=== PATIENT | female | born 1980 | race Caucasian/White ===

== ENCOUNTER 2023-07-12 08:49 | Emergency (ER) | payer BC, SELFPAY ==
[2023-07-12 08:51] VITALS: BP 132/93
--- NOTE | 2023-07-12 08:56 | ED.GENMED ---
History of Present Illness
General
Chief Complaint: Cold/Flu/URI Symptoms
Time Seen by Provider: 07/12/23 08:56
Travel History
Have you had any contact with someone who has COVID-19?: No
Do you have any symptoms of coronavirus? Fever > 100 degrees, chills, cough, shortness of breath, sore throat, loss of taste or smell, muscle aches, or headache?: No
History of Present Illness
History of Present Illness:
HPI: Patient tested positive for COVID-19 about 5 days ago. She has associated congestion and has maybe some trouble breathing. One of the main symptoms is concerns with anosmia and inability to taste. She does appear very anxious. She states
she is normally very healthy. She has not been vaccinated against COVID-19 this year.
EXAM:
GENERAL: Well appearing but appears very anxious
HEENT: Moist oral mucosa
CARDIOVASCULAR: No murmurs, borderline tachycardic heart rate with regular rhythm, No chest wall tenderness
PULMONARY: No respiratory distress, breath sounds are clear and equal
ABDOMEN: Soft with no peritoneal signs, no tenderness
NEUROLOGIC: Excellent strength all extremities, no coordination deficits
PSYCHIATRIC: Appropriate mental status, normal insight and judgement, appears anxious
EXTREMITIES: Nontender, no edema, moves all extremities equally
SKIN: No rash, no lesions
ED COURSE:
9:10 AM: I initially evaluated patient
NUMBER AND COMPLEXITY OF PROBLEMS ADDRESSED AT THE ENCOUNTER
� Chronic conditions affecting care: Denies any past medical history
� Acute Exacerbation and/or Progression of Chronic Illness: This is an acute problem
� Differential Diagnosis includes: Anosmia from COVID-19, anxiety
AMOUNT AND/OR COMPLEXITY OF DATA TO BE REVIEWED AND ANALYZED
� I performed an independent evaluation of and my interpretation is:
EKG:
CT:
X-rays:
Laboratory Studies:
Other:
� Review of other/old records: No old records available for review
� Clinical information was obtained by an independent historian:
� Prescriptions/Medications Considered but not given: Considered Paxlovid however the patient is young and healthy and symptoms have been going on for about a week
� Further testing considered but not performed:
RISK OF COMPLICATIONS AND/OR MORBIDITY OR MORTALITY OF PATIENT MANAGEMENT
� Social determinants of health affecting care: Lives alone at home and is estranged from her family and she says she has lack of social support
� Discussion with other providers:
� Escalation of care including admission/observation vs risk of discharge considered: The patient is young and healthy but is extremely concerned about the anosmia. She appears extremely anxious. She has been having trouble
sleeping recently. Reassurance was given. No clear indication for any imaging as she has room air sats of 100% and her breath sounds are perfectly clear.
Phy Exam
Physical Exam
Physical Exam:
See HPI
Course
Vital Signs
Initial and Last Documented VS:
Initial Vital Signs
Temp Pulse Resp BP Pulse Ox
99.4 F 104 16 132/93 100
07/12/23 08:51 07/12/23 08:51 07/12/23 08:51 07/12/23 08:51 07/12/23 08:51
Last Documented Vital Signs
Temp Pulse Resp BP Pulse Ox
99.4 F 104 16 132/93 100
07/12/23 08:51 07/12/23 08:51 07/12/23 08:51 07/12/23 08:51 07/12/23 08:51
*Critical Care Note
Total Time (30-74mins, 75-104mins- exclusive of procedures): Not Applicable
ED Attending Note
-
Portions of this chart may have been created with voice recognition software.� Occasional wrong word or��sound alike� substitutions may have occurred due to the inherent limitations of voice recognition software.
Discharge Plan
Departure
Patient Disposition: Home (Routine Discharge)
Date of Disposition: 07/12/23
Time of Disposition: 09:15
Patient with high blood pressure during this ER visit?: Yes
Discharge Problem:
Anosmia, COVID-19
Activity Restrictions/Additional Instructions:
The lack of smell and taste is extremely common with COVID-19. There is no other medication that be given to help speed the recovery. However, in general symptoms can take several weeks to possibly months to resolve. Your vital signs show that
you have an excellent oxygen level and your breath sounds are clear. I do not feel that you are in any threat from the COVID-19 for anything serious. Return here if worse.
Interventions
Interventions:
*Risk Screen - Suicide Last Done: 07/12/23 08:51
*General Assessment Last Done: 07/12/23 08:51
*Neglect/Abuse Screening Last Done: 07/12/23 08:51
ED- Pulmonary Assessment Last Done: 07/12/23 09:02
== END 2023-07-12 09:39 | disposition home or self-care (01) ==
LOC: EMR 08:49
PROVIDERS: EMERGENCY PHYSICIAN Emergency Medicine; FAMILY PHYSICIAN Family Medicine
DX: R43.0 Anosmia (principal); U07.1 COVID-19
CPT/HCPCS: 99282

== ENCOUNTER 2023-07-16 07:27 | Emergency (ER) | payer BC, SELFPAY ==
[2023-07-16 07:32] VITALS: BP 134/96
[2023-07-16 07:58] VITALS: BMI 18.7
--- NOTE | 2023-07-16 08:18 | ED.GENMED ---
History of Present Illness
<EVELIO Blancas - Last Filed: 07/18/23 01:15>
General
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
Source: patient
Exam Limitations: none
Time Seen by Provider: 07/16/23 07:57
Nursing documentation reviewed up to this point in time: agreed with
Travel History
Have you had any contact with someone who has COVID-19?: No
Do you have any symptoms of coronavirus? Fever > 100 degrees, chills, cough, shortness of breath, sore throat, loss of taste or smell, muscle aches, or headache?: No
History of Present Illness
History of Present Illness:
Patient is a 43-year-old female who presents to the ER for evaluation. Patient presents very anxious reports she recently had COVID 2 weeks ago. She reports in fact she was seen here several days ago because she lost her taste and smell. She
tells me she is very anxious over COVID.
She reports she was seen by her family doctor 10 days ago for a physical and they found incidental blood in her urine. She reports her period started 2 weeks ago and normally last for 4 days however she has noted blood in her urine and does not
believe this is her menses. She denies any nausea vomiting abdominal pain back pain fever chills.
Review of Systems
<EVELIO Blancas - Last Filed: 07/18/23 01:15>
Review of Systems
Allergies reviewed?: Yes
All Other Systems: ROS reviewed and negative except as documented in HPI and ROS
Constitutional: Reports no symptoms; Denies fever, fatigue or chills
EENT: Reports other (loss of taste /smell since covid 2 wks ago )
Respiratory: Reports no symptoms
Cardiac: Reports no symptoms
ABD/GI: Reports no symptoms
: Reports no symptoms
Musculoskeletal: Reports no symptoms
Skin: Reports no symptoms
Neurological: Reports no symptoms
Psychiatric: Reports anxiety
Phy Exam
<EVELIO Blancas - Last Filed: 07/18/23 01:15>
General Physical Exam
General Presentation: no apparent distress
General age: appears stated age
General Skin: warm and dry
General Habitus: normal
General Mental: alert
General Hydration: appears well hydrated
Cardiovascular Exam
Cardiovascular Exam: regular rate/rhythm, no murmur and normal peripheral pulses
Pulmonary Exam
Pulmonary Exam: lungs clear and no respiratory distress
Neurological Exam
Neurological Exam: alert and oriented x3
Musculoskeletal Exam
Musculoskeletal Exam: full ROM
Skin Exam
Skin Exam: normal color and warm/dry
Psychiatric Exam
Psychiatric Exam: anxious
Course
<EVELIO Blancas - Last Filed: 07/18/23 01:15>
Orders/Labs/Results
Orders:
Orders
07/16/23 08:17
Test Result ONCE
07/16/23 08:23
HCG, Urine Qualitative Screen Urgent
Date Specimen was Collected: 07/16/23
Time Specimen was Collected: 08:19
UA Reflex to Culture [Urinalysis Reflex To Culture] Urgent
Date Specimen was Collected: 07/16/23
Time Specimen was Collected: 08:19
Urine Microscopic Reflex Cult Urgent
Urine Culture Urgent
[facility] Source: U
Specimen Description:
Date Specimen was Collected: 07/16/23
Time Specimen was Collected: 08:19
07/16/23 10:20
IV Insert/Care/Rem.- Treatment PRN
07/16/23 10:22
Complete Blood Count/With Diff Urgent
Comprehensive Metabolic Panel Urgent
PTT Urgent
Prothrombin Time Urgent
07/16/23 11:20
Vital Signs- Treatment ONCE
Frequency: Once
Abnormal Lab Results
07/16/23 07/16/23
08:23 10:22
Absolute Monos (auto) 1.0 H 10^3/uL
(0.1-0.6)
Lymphocytes % 16.9 L %
(20.5-51.1)
Monocytes % 12.3 H %
(1.7-9.3)
Creatinine 0.4 L mg/dL
(0.6-1.0)
Glucose 109 H mg/dl
(70-99)
AST 40 H U/L
(14-36)
ALT 98 H U/L
(0-35)
Ur Occult Blood Reflex 1+ A
(Negative)
Leukocyte Esterase Rfl 1+ A
(Negative)
Urine Bacteria (Reflex) Few A
(Negative)
07/16/23 10:22
07/16/23 10:22
Vital Signs
Initial and Last Documented VS:
Initial Vital Signs
Temp Pulse Resp BP Pulse Ox
98.3 F 115 18 134/96 98
07/16/23 07:32 07/16/23 07:32 07/16/23 07:32 07/16/23 07:32 07/16/23 07:32
Last Documented Vital Signs
Temp Pulse Resp BP Pulse Ox
98.3 F 78 18 112/72 97
07/16/23 07:32 07/16/23 11:31 07/16/23 11:31 07/16/23 11:31 07/16/23 11:31
Deli Clerk consulted with Physician
Deli Clerk consulted with physician?: Yes
Name of Physician Consulted: kevin
<Pily Joshua MD - Last Filed: 07/16/23 11:24>
Orders/Labs/Results
Orders:
Orders
07/16/23 08:17
Test Result ONCE
07/16/23 08:23
HCG, Urine Qualitative Screen Urgent
Date Specimen was Collected: 07/16/23
Time Specimen was Collected: 08:19
UA Reflex to Culture [Urinalysis Reflex To Culture] Urgent
Date Specimen was Collected: 07/16/23
Time Specimen was Collected: 08:19
Urine Microscopic Reflex Cult Urgent
Urine Culture Urgent
[facility] Source: U
Specimen Description:
Date Specimen was Collected: 07/16/23
Time Specimen was Collected: 08:19
07/16/23 10:20
IV Insert/Care/Rem.- Treatment PRN
07/16/23 10:22
Complete Blood Count/With Diff Urgent
Comprehensive Metabolic Panel Urgent
PTT Urgent
Prothrombin Time Urgent
07/16/23 11:20
Vital Signs- Treatment ONCE
Frequency: Once
Abnormal Lab Results
07/16/23 07/16/23
08:23 10:22
Absolute Monos (auto) 1.0 H 10^3/uL
(0.1-0.6)
Lymphocytes % 16.9 L %
(20.5-51.1)
Monocytes % 12.3 H %
(1.7-9.3)
Creatinine 0.4 L mg/dL
(0.6-1.0)
Glucose 109 H mg/dl
(70-99)
AST 40 H U/L
(14-36)
ALT 98 H U/L
(0-35)
Ur Occult Blood Reflex 1+ A
(Negative)
Leukocyte Esterase Rfl 1+ A
(Negative)
Urine Bacteria (Reflex) Few A
(Negative)
07/16/23 10:22
07/16/23 10:22
Vital Signs
Initial and Last Documented VS:
Initial Vital Signs
Temp Pulse Resp BP Pulse Ox
98.3 F 115 18 134/96 98
02/07/24 07:32 07/16/23 07:32 07/16/23 07:32 07/16/23 07:32 07/16/23 07:32
Last Documented Vital Signs
Temp Pulse Resp BP Pulse Ox
98.3 F 78 18 112/72 97
07/16/23 07:32 07/16/23 11:31 07/16/23 11:31 07/16/23 11:31 07/16/23 11:31
<EVELIO Blancas - Last Filed: 07/18/23 01:15>
MDM/Problems Addressed
MDM/Problems Addressed:
Patient is a 43-year-old female who presents to the ER for evaluation. Patient presents to the ER very anxious. Patient very fixated on how she had COVID 2 weeks ago and how this' has ruined my life.' She is very concerned that she has lost taste
and smell. In fact she was seen here in the ER for this July 12. She is concerned that she had some blood in her urine incidentally at her family practice office. She is convinced this is not vaginal. She on exam is quite anxious tells me she
has not been able to sleep because of COVID. On exam however despite being anxious she is in no acute distress. She has no nitrates and only 0�2 RBCs in urine. Patient evaluated by ED physician as very anxious multiple complaints including very
concentrated on COVID and the fact that she is not able to sleep because of this.
Patient had labs checked and no acute findings.
Patient was given several tablets of sleeping medicine however I discussed with patient that she must closely follow-up with family doctor for further reevaluation of symptoms including her anxiety.
<EVELIO Blancas - Last Filed: 07/18/23 01:15>
*Pulse Oximetry
Patient hypoxic: no
*Critical Care Note
Total Time (30-74mins, 75-104mins- exclusive of procedures): Not Applicable
ED Attending Note
<EVELIO Blancas - Last Filed: 07/18/23 01:15>
-
Portions of this chart may have been created with voice recognition software.� Occasional wrong word or��sound alike� substitutions may have occurred due to the inherent limitations of voice recognition software.
<Pily Joshua MD - Last Filed: 07/16/23 11:24>
ED Attending Note
Patient seen and examined by attending physician: Yes
I performed the substantive portion of visit, reviewed & personally made and approve the management plan that is documented in note by myself or MINOR.: Yes
ED Attending Note:
43-year-old female with a constellation of symptoms ever since she got COVID approximately 12 days ago. Describes her self is perfectly well before that time. Of note, and routine PCP visit she was noted to have microscopic hematuria on July 02
and does need to pursue outpatient follow-up regarding. She describes insomnia, anorexia, weight loss, intermittent nonproductive cough, fatigue, loss of taste and smell, and concern regarding dysuria/urgency. She denies flank pain, abdominal
pain, vomiting. On exam, heart regular rate and rhythm, lungs CTA, abdomen soft and nontender. Neurologically intact. Workup generally unremarkable here, microscopic hematuria noted and she should pursue continued outpatient follow-up regarding,
no findings to suggest cystitis/UTI/pyelonephritis.
Discharge Plan
Departure
Patient Disposition: Home (Routine Discharge)
Date of Disposition: 07/16/23
Time of Disposition: 11:57
Patient with high blood pressure during this ER visit?: Yes
Condition: Fair
Covid-19: Not Applicable
Discharge Problem:
Hematuria
Instructions: Blood in the urine (hematuria) in adults
Prescriptions:
New
zolpidem [Ambien] 5 mg tablet
5 mg PO HS PRN (Reason: insomnia) Qty: 5 0RF
Referrals:
Fede Louis MD [Family Provider] -
Activity Restrictions/Additional Instructions:
As discussed please follow-up with your family doctor for further evaluation of symptoms including blood in urine, difficulty sleeping and other symptoms including inability to sleep. You were given a prescription for Ambien to take for sleep.
This medication was sent to your pharmacy
As discussed your liver function tests are very minimally elevated. please have this evaluated by your family doctor. Return if any worsening of symptoms
Interventions
Interventions:
*Risk Screen - Suicide Last Done: 07/16/23 07:32
*General Assessment Last Done: 07/16/23 07:32
*Neglect/Abuse Screening Last Done: 07/16/23 07:32
ED- Fall Risk Assessment Last Done: 07/16/23 07:58
*ED COVID-19 Vaccine History Last Done: 07/16/23 07:32
*Nursing Disposition Last Done: 07/16/23 12:08
ED-Female Genitourinary Assessment Last Done: 07/16/23 07:58
Discharge Date and Time
Discharge Date/Time: 07/16/23 12:09
[2023-07-16 08:39] LABS: Urine Albumin Negative (Neg - Trace); Urine Bilirubin Negative (Negative); Urine Character Clear (Clear); Urine Color Yellow; Urine Glucose Negative (Negative); Urine Ketone Negative (Negative); Urine Leukocyte 1+ (Negative); Urine Nitrite Negative (Negative); Urine Occult Blood 1+ (Negative); Urine Urobilinogen Negative (Neg - 1+)
[2023-07-16 08:43] LABS: HCG, Urine Qualitative Screen Negative
[2023-07-16 08:55] LABS: Urine Bacteria Few (Negative); Urine Mucus Few; Urine Squamous Cell 0-2 /LPF (Few)
[2023-07-16 08:56] LABS: Urine Red Blood Cell 0-2 /HPF (0-2)
[2023-07-16 10:34] LABS: % Basophils 0.5 % (0-2); % Immature Granulocytes 0.5 % (0-0.5); % Lymphocytes 16.9 % (20.5-51.1); % Monocytes 12.3 % (1.7-9.3); % Neutrophils 68.8 % (42.2-75.2); Absolute Eosinophils 0.1 10^3/uL (0-0.7); Absolute Lymphocytes 1.4 10^3/uL (1.2-3.4); Absolute Neutrophils 5.5 10^3/uL (1.4-6.5); Hematocrit 37.2 % (37.0-47.0); Hemoglobin 13.3 g/dL (12.0-16.0); Mean Corp Hgb Conc. 35.8 g/dL (33.0-37.0); Mean Corpuscular Hgb 29.4 pg (27.0-31.0); Mean Corpuscular Volume 82.1 fL (81.0-99.0); Nucleated Red Blood Cells % 0 %; Red Blood Cell Count 4.53 10^6/uL (4.20-5.40); Red Cell Dist. Width 11.6 % (11.5-14.5)
[2023-07-16 10:43] LABS: INR 1.06; PT 13.8 Sec (11.4-14.6)
[2023-07-16 10:44] LABS: APTT 24.7 Sec (23.4-35.0)
[2023-07-16 10:55] LABS: ALT (SGPT) 98 U/L (0-35); AST (SGOT) 40 U/L (14-36); Albumin 4.1 g/dl (3.5-5.0); Alkaline Phosphatase 56 U/L (38-126); Blood Urea Nitrogen 7 mg/dl (7-17); Calcium 9.2 mg/dl (8.4-10.2); Carbon Dioxide 26 mmol/L (22-30); Chloride 105 mmol/L (98-107); Estimated Creatinine Clearance 96 ml/min; Glucose 109 mg/dl (70-99); Potassium 4.1 mmol/L (3.5-5.1); Sodium 138 mmol/L (135-145); Total Bilirubin 0.5 mg/dl (0.2-1.3); Total Protein 7.1 g/dl (6.3-8.2); eGFR > 60.00
[2023-07-16 11:31] VITALS: BP 112/72
== END 2023-07-16 12:09 | disposition home or self-care (01) ==
LOC: EMR 07:27
PROVIDERS: Nurse Practitioner; EMERGENCY PHYSICIAN Emergency Medicine; FAMILY PHYSICIAN Family Medicine
DX: R31.9 Hematuria, unspecified (principal); R03.0 Elevated blood-pressure reading, without diagnosis of hypertension
CPT/HCPCS: 99283; 80053; 81003; 81015; 81025; 85025; 85610; 85730; 87086

== ENCOUNTER 2023-09-18 15:08 | Emergency (ER) | payer BC, SELFPAY ==
[2023-09-18 15:32] VITALS: BMI 14.9
--- NOTE | 2023-09-18 15:37 | ED.GENMED ---
History of Present Illness
General
Chief Complaint: Crisis Evaluation
Source: patient
Exam Limitations: none
Time Seen by Provider: 09/18/23 15:28
History of Present Illness
History of Present Illness:
See MDM
Past History
Past History
ED Past Medical History: Psychiatric
ED Past Surgical History: None
Social History
Tobacco: Non-smoker
Alcohol: None
Phy Exam
Physical Exam
Physical Exam:
See MDM
Course
Orders/Labs/Results
Orders:
Orders
09/18/23 15:36
Test Result ONCE
09/18/23 15:49
Alcohol Urgent
Complete Blood Count/With Diff Urgent
Comprehensive Metabolic Panel Urgent
HCG, Urine Qualitative Screen Urgent
Date Specimen was Collected: 09/18/23
Time Specimen was Collected: 15:42
Urinalysis Reflex To Culture Urgent
Date Specimen was Collected: 09/18/23
Time Specimen was Collected: 15:42
Urine Drug Abuse Screen Urgent
Date Specimen was Collected: 09/18/23
Time Specimen was Collected: 15:42
Urine Microscopic Reflex Cult Urgent
Urine Culture Urgent
[facility] Source: U
Specimen Description:
Date Specimen was Collected: 09/18/23
Time Specimen was Collected: 15:42
Abnormal Lab Results
09/18/23
15:49
Absolute Neuts (auto) 7.4 H 10^3/uL
(1.4-6.5)
Absolute Lymphs (auto) 1.0 L 10^3/uL
(1.2-3.4)
Absolute Monos (auto) 1.0 H 10^3/uL
(0.1-0.6)
Neutrophils % 77.5 H %
(42.2-75.2)
Lymphocytes % 10.8 L %
(20.5-51.1)
Monocytes % 10.2 H %
(1.7-9.3)
Sodium 134 L mmol/L
(135-145)
Carbon Dioxide 19 L mmol/L
(22-30)
BUN 6 L mg/dl
(7-17)
Creatinine 0.4 L mg/dL
(0.6-1.0)
Glucose 120 H mg/dl
(70-99)
Urine Ketones 3+ A
(Negative)
Ur Occult Blood Reflex Trace A
(Negative)
Leukocyte Esterase Rfl 2+ A
(Negative)
Urine WBC (Reflex) 60-70 A /HPF
(0-5)
Urine Bacteria (Reflex) Moderate A
(Negative)
09/18/23 15:49
09/18/23 15:49
Vital Signs
Initial and Last Documented VS:
Initial Vital Signs
Pulse Resp BP Pulse Ox
99 18 137/82 98
09/18/23 15:48 09/18/23 15:48 09/18/23 15:48 09/18/23 15:48
Last Documented Vital Signs
Pulse Resp BP Pulse Ox
99 18 137/82 98
09/18/23 15:48 09/18/23 15:48 09/18/23 15:48 09/18/23 15:48
MDM/Problems Addressed
Differential Diagnosis Includes:
HPI and MDM Narrative:
43-year-old female presenting for psychiatric evaluation. A backup 302 was filed by a Automobile Insurance Claim Examiner, per crisis. Per crisis, patient was found walking around the park with a handgun. Patient states she has a license to carry and she upholstered her
gun because it was bothering her side. Patient states that she was talking to a stranger prior to the interaction with the Automobile Insurance Claim Examiner. Based on their interaction with the bystander saw out the Automobile Insurance Claim Examiner. Patient is currently denying suicidal
or homicidal thoughts. She states she has a recent diagnosis of major depression disorder but has not started antidepressants.
Physical exam
General: Well appearing and non-toxic
HEENT: protecting airway
Neck: appears supple
CV: No evidence of cyanosis
Resp: No accessory muscle use
Abd: Non-distended
Extremities: No deformities
Neuro: alert
Psych: Flat affect
Skin: Intact
Problems Addressed including Acute and Chronic Conditions affecting care:
1. Depression
Acuity: acute
Prognosis: unstable
Details: Patient currently on a backup 302 but states she is willing to go on a 201. Crisis following
Updates
Patient accepted to a psychiatric facility
Urinalysis appears contaminated.
Differential Diagnosis (but not limited to): Depression, suicidal thoughts
Testing considered: CT head but patient appears to be acting appropriately
Drug therapy (if applicable): OTC meds, please see d/c instruction regarding Rx drugs
Amount and/or Complexity of Data Reviewed
Clinical info obtained from: Patient
External data reviewed: N/A
Labs I independently reviewed (but not limited to): White blood cell count
Radiology: N/A
Pulse Ox: not hypoxic
EKG independently reviewed: N/A
Events Specialist: N/A
Critical Care: N/A
Risk of Complication:
Social Determinants of health: Poor social support
Discussed with other providers: Crisis
Escalation of Care includes Admit/Obs: Pt signed 201 and stable fro transfer to psych facility
Occasional wrong word or 'sound a like' substitutions may have occurred due to the inherent limitations of voice recognition software. Read the chart carefully and recognize, using context, where substitutions have occurred.
*Critical Care Note
Total Time (30-74mins, 75-104mins- exclusive of procedures): Not Applicable
ED Attending Note
-
Portions of this chart may have been created with voice recognition software.� Occasional wrong word or��sound alike� substitutions may have occurred due to the inherent limitations of voice recognition software.
Discharge Plan
Departure
Patient Disposition: Psych Facility
Date of Disposition: 09/18/23
Time of Disposition: 15:15
Discharge Problem:
Depression
Prescriptions:
No Action
zolpidem [Ambien] 5 mg tablet
5 mg PO HS PRN (Reason: insomnia) Qty: 5 0RF
Referrals:
UNKNOWN,NO INTERVIEW [Family Provider] -
Interventions
Interventions:
*Risk Screen - Suicide Last Done: 09/18/23 15:32
*General Assessment Last Done: 09/18/23 15:32
*Neglect/Abuse Screening Last Done: 09/18/23 15:32
ED- Fall Risk Assessment Last Done: 09/18/23 15:56
*ED COVID-19 Vaccine History Last Done: 09/18/23 15:32
ED-Psychological Assessment Last Done: 09/18/23 15:32
Discharge Date and Time
Print Language: [place]
[2023-09-18 15:48] VITALS: BP 137/82
[2023-09-18 16:18] LABS: % Basophils 0.3 % (0-2); % Eosinophils 0.8 % (0-6); % Immature Granulocytes 0.4 % (0-0.5); % Lymphocytes 10.8 % (20.5-51.1); % Monocytes 10.2 % (1.7-9.3); % Neutrophils 77.5 % (42.2-75.2); Absolute Eosinophils 0.1 10^3/uL (0-0.7); Absolute Neutrophils 7.4 10^3/uL (1.4-6.5); Hematocrit 38.2 % (37.0-47.0); Hemoglobin 13.1 g/dL (12.0-16.0); Mean Corp Hgb Conc. 34.3 g/dL (33.0-37.0); Mean Corpuscular Hgb 28.9 pg (27.0-31.0); Mean Corpuscular Volume 84.3 fL (81.0-99.0); Nucleated Red Blood Cells % 0 %; Red Blood Cell Count 4.53 10^6/uL (4.20-5.40); Red Cell Dist. Width 12.9 % (11.5-14.5); White Blood Cell Count 9.5 10^3/uL (4.8-10.8)
[2023-09-18 16:22] LABS: HCG, Urine Qualitative Screen Negative
[2023-09-18 16:30] LABS: ALT (SGPT) 16 U/L (0-35); AST (SGOT) 19 U/L (14-36); Albumin 4.5 g/dl (3.5-5.0); Alkaline Phosphatase 62 U/L (38-126); Blood Urea Nitrogen 6 mg/dl (7-17); Calcium 9.7 mg/dl (8.4-10.2); Carbon Dioxide 19 mmol/L (22-30); Chloride 104 mmol/L (98-107); Estimated Creatinine Clearance 79 ml/min; Glucose 120 mg/dl (70-99); Potassium 3.6 mmol/L (3.5-5.1); Sodium 134 mmol/L (135-145); Total Bilirubin 0.5 mg/dl (0.2-1.3); Total Protein 7.4 g/dl (6.3-8.2); eGFR > 60.00
[2023-09-18 16:31] LABS: Alcohol None Detected
[2023-09-18 16:36] LABS: Amphetamines Negative (Negative); Barbiturates Negative (Negative); Benzodiazepines Negative (Negative); Buprenorphine Negative (Negative); Cocaine Negative (Negative); Methadone Negative (Negative); Methamphetamines Negative (Negative); Opiates Negative (Negative); Phencyclidine Negative (Negative); Urine Albumin Negative (Neg - Trace); Urine Bilirubin Negative (Negative); Urine Character Slightly Cloudy (Clear); Urine Color Yellow; Urine Glucose Negative (Negative); Urine Ketone 3+ (Negative); Urine Leukocyte 2+ (Negative); Urine Nitrite Negative (Negative); Urine Occult Blood Trace (Negative); Urine Specific Gravity 1.015 (<1.030); Urine Urobilinogen Negative (Neg - 1+)
[2023-09-18 16:37] LABS: Marijuana Negative (Negative); Tricyclic Antidepressants Negative (Negative)
[2023-09-18 17:19] LABS: Urine Red Blood Cell 0-2 /HPF (0-2); Urine Squamous Cell >30 /LPF (Few)
[2023-09-18 17:20] LABS: Urine Bacteria Moderate (Negative); Urine White Cell 60-70 /HPF (0-5)
== END 2023-09-18 19:39 ==
LOC: EMR 15:08
PROVIDERS: EMERGENCY PHYSICIAN Student in an Organized Health Care Education/Training Program
DX: F32.A Depression, unspecified (principal)
CPT/HCPCS: 99285; 80053; 80306; 81003; 81015; 81025; 82077; 85025; 87086